=== PATIENT | male | born 1930 | race African-American/Black ===

== ENCOUNTER 2020-04-25 18:17 | Inpatient (IN) | payer OTHER ==
[~2020-04-25] VITALS: Ht 172.7 cm; Wt 66.4 kg
[2020-04-25] MEDS ORDERED: GENTAMICIN 60MG PREMIX 50 ML IV STA (18:36)
[2020-04-25] MEDS ORDERED: DEXTROSE 50% WATER 50ML SYRINGE IV ONE (18:45)
[2020-04-25] MEDS ORDERED: VANCOMYCIN 1 G PREMIX 200 ML IV SCH (18:45)
[2020-04-25] MEDS ORDERED: MORPHINE SULFATE 2 MG/ML CPJ (NOT FOR IM USE) IV ONE (19:00)
[2020-04-25 19:19] LABS: HEMATOCRIT. 35.9 % (42.0-52.0); HEMOGLOBIN. 11.4 g/dL (14.0-18.0); MEAN CORPUSCULAR HEMOGLOBIN 28.8 pg (28.0-32.0); MEAN CORPUSCULAR VOLUME 90.4 fL (80.0-94.0); MEAN PLATELET VOLUME 7.7 fl (7.4-10.4); PLATELET 200 x1000/uL (130-400); RED BLOOD CELL COUNT 3.96 mill/uL (4.7-6.1); RED CELL DISTRIBUTION WIDTH 16.9 % (11.6-14.6)
[2020-04-25 19:26] LABS: PROTHROMBIN TIME 11.1 sec (9.6-11.0)
[2020-04-25 19:27] LABS: CHLORIDE 104 mEq/L (98-107)
[2020-04-25] MEDS ORDERED: GENTAMICIN SULFATE 60 MG in SODIUM CHLORIDE 0.9% 50 ML IV NR (19:30)
[2020-04-25] MEDS ORDERED: SODIUM CHLORIDE 0.9% 1000ML BAG (SEPSIS BOLUS) IV ONE (20:00)
[2020-04-25 20:03] LABS: PLATELET ESTIMATE NORMAL
[2020-04-25] MEDS ORDERED: ACETAMINOPHEN 325MG TABLET PO PRN (21:45)
[2020-04-25] MEDS ORDERED: IPRATROPIUM/ALBUTEROL 0.5-3(2.5)MG/3ML NEB HHN PRN (21:45)
[2020-04-25] MEDS ORDERED: HYDROCODONE/ACETAMINOPHEN 5/325MG TABLET PO PRN (21:45)
[2020-04-25] MEDS ORDERED: CLONIDINE 0.1MG TABLET PO PRN (21:45)
[2020-04-25] MEDS ORDERED: HYDRALAZINE 20MG/ML VIAL IV PRN (21:45)
[2020-04-25] MEDS ORDERED: MAGNESIUM/ALUMINUM HYDROXIDE/SIMETHICONE 30ML UDC PO PRN (21:45)
[2020-04-25] MEDS ORDERED: GUAIFENESIN 200MG/10ML SUGAR FREE UDC PO PRN (21:45)
[2020-04-25] MEDS ORDERED: DOCUSATE SODIUM 100MG CAPSULE PO PRN (21:45)
[2020-04-25] MEDS ORDERED: ONDANSETRON HCL 4MG/2ML INJ IV PRN (21:45)
[2020-04-25] MEDS ORDERED: LORAZEPAM 2MG/ML CPJ IV PRN (21:45)
[2020-04-25] MEDS ORDERED: DIPHENHYDRAMINE 50MG/ML VIAL IV PRN (21:45)
[2020-04-25] MEDS ORDERED: MORPHINE SULFATE 2 MG/ML CPJ (NOT FOR IM USE) IV PRN (21:45)
[2020-04-25] MEDS ORDERED: HEPARIN 25,000 UNITS PREMIX 250 ML IV STA (21:56)
[2020-04-25] MEDS: SODIUM CHLORIDE 0.9% INJ 3ML FLUSH IVF SCH (22:00)
[2020-04-25] MEDS ORDERED: HEPARIN 5000 UNITS/ML VIAL IV ONE (22:00)
[2020-04-25] MEDS: DEXTROSE 5% WATER 1,000 ML IV SCH (22:52)
[2020-04-25] MEDS ORDERED: HEPARIN 25,000 UNITS PREMIX 250 ML IV SCH (23:00)
[2020-04-25] MEDS ORDERED: ENOXAPARIN 60MG/0.6ML SYR SUBCUT SCH (23:30)
[2020-04-25 23:41] LABS: CREATINE KINASE MB FRACTION 3.9 ng/mL (0.5-3.6)
[2020-04-26] VITALS (7 sets, daily range): BP systolic 107–140; BP diastolic 58–77
[2020-04-26] MEDS: SODIUM CHLORIDE 0.9% INJ 3ML FLUSH IVF SCH ×3 (05:03→22:02)
[2020-04-26] MEDS ORDERED: HEPARIN BOLUS PRN aPTT <36 IV (06:00)
[2020-04-26 07:05] LABS: HEMATOCRIT. 32.6 % (42.0-52.0); HEMOGLOBIN. 10.3 g/dL (14.0-18.0); MEAN CORPUSCULAR HEMOGLOBIN 28.8 pg (28.0-32.0); MEAN CORPUSCULAR VOLUME 90.7 fL (80.0-94.0); MEAN PLATELET VOLUME 7.8 fl (7.4-10.4); PLATELET 209 x1000/uL (130-400); RED CELL DISTRIBUTION WIDTH 17.4 % (11.6-14.6)
[2020-04-26 07:07] LABS: CHLORIDE 105 mEq/L (98-107)
[2020-04-26 07:15] LABS: CREATINE KINASE 43 IU/L (39-308)
[2020-04-26 07:17] LABS: CREATINE KINASE MB FRACTION 3.2 ng/mL (0.5-3.6)
[2020-04-26] MEDS ORDERED: POTASSIUM CHLORIDE 20MEQ TABLET SR PO NR (09:00)
[2020-04-26] MEDS ORDERED: HEPARIN BOLUS PRN aPTT 37-44 IV (09:00)
[2020-04-26] MEDS: ENOXAPARIN 60MG/0.6ML SYR SUBCUT SCH (09:39)
[2020-04-26] MEDS: ASPIRIN 81MG TABLET PO SCH (11:14)
[2020-04-26] MEDS ORDERED: VANCOMYCIN 1 G PREMIX 200 ML IV SCH (13:00)
[2020-04-26 14:34] LABS: PLATELET ESTIMATE NORMAL
[2020-04-26] MEDS: DEXTROSE 5% WATER 1,000 ML IV SCH (22:02)
[2020-04-27] VITALS: BP 127/66
[2020-04-27 04:00] VITALS: BP 137/68
[2020-04-27] MEDS: SODIUM CHLORIDE 0.9% INJ 3ML FLUSH IVF SCH ×3 (05:14→21:26)
[2020-04-27 08:00] VITALS: BP 102/63
[2020-04-27 08:01] LABS: BASOPHILS % 0.7 % (0.0-2.0); HEMATOCRIT. 33.5 % (42.0-52.0); HEMOGLOBIN. 10.5 g/dL (14.0-18.0); LYMPHOCYTES % 7.5 % (20.0-50.0); MEAN CORPUSCULAR VOLUME 92.3 fL (80.0-94.0); MEAN PLATELET VOLUME 8.3 fl (7.4-10.4); MONOCYTES % 9.3 % (2.0-8.0); NEUTROPHILS % 81.5 % (40.0-76.0); PLATELET 228 x1000/uL (130-400); RED BLOOD CELL COUNT 3.63 mill/uL (4.7-6.1); RED CELL DISTRIBUTION WIDTH 17.6 % (11.6-14.6)
[2020-04-27] MEDS: ASPIRIN 81MG TABLET PO SCH (08:39)
[2020-04-27] MEDS: ENOXAPARIN 60MG/0.6ML SYR SUBCUT SCH (09:14)
[2020-04-27 12:00] VITALS: BP 120/61
[2020-04-27 16:00] VITALS: BP 139/60
[2020-04-27 20:00] VITALS: BP 137/67
[2020-04-27] MEDS: DEXTROSE 5% WATER 1,000 ML IV SCH (21:00)
[2020-04-28] VITALS: BP 128/69
[2020-04-28 04:00] VITALS: BP 140/62
[2020-04-28] MEDS: SODIUM CHLORIDE 0.9% INJ 3ML FLUSH IVF SCH ×2 (05:12→13:36)
[2020-04-28 06:38] LABS: HEMATOCRIT. 32.6 % (42.0-52.0); HEMOGLOBIN. 10.4 g/dL (14.0-18.0); MEAN CORPUSCULAR VOLUME 90.8 fL (80.0-94.0); PLATELET 237 x1000/uL (130-400); RED BLOOD CELL COUNT 3.58 mill/uL (4.7-6.1); RED CELL DISTRIBUTION WIDTH 17.2 % (11.6-14.6)
[2020-04-28] MEDS: ASPIRIN 81MG TABLET PO SCH (08:19)
[2020-04-28 09:00] VITALS: BP 114/60
[2020-04-28] MEDS: ENOXAPARIN 60MG/0.6ML SYR SUBCUT SCH (09:27)
[2020-04-28 12:00] VITALS: BP 124/73
[2020-04-28 14:33] LABS: PLATELET ESTIMATE NORMAL
[2020-04-28 14:36] VITALS: BP 124/73
[2020-04-28 16:00] VITALS: BP 135/53
[2020-04-28] MEDS ORDERED: VANCOMYCIN 500 MG PREMIX 100 ML IV SCH (21:00)
[2020-04-29] MEDS ORDERED: ENOXAPARIN 80MG/0.8ML SYR SUBCUT SCH (09:00)
== END 2020-04-28 17:10 | disposition short-term general hospital (02) | DRG 299 ==
LOC: ER 18:25 → 5WST 20:33 → ENRESERV 23:48
PROVIDERS: ADMIT Internal Medicine; ATTEND Internal Medicine
PROC: 5A1D70Z Performance of Urinary Filtration, Intermittent, Less than 6 Hours Per Day (ICD-10-PCS; principal; 2020-04-26)
DX: I82.411 Acute embolism and thrombosis of right femoral vein (principal); N18.6 End stage renal disease; G93.40 Encephalopathy, unspecified; E46 Unspecified protein-calorie malnutrition; I12.0 Hypertensive chronic kidney disease with stage 5 chronic kidney disease or end stage renal disease; L97.819 Non-pressure chronic ulcer of other part of right lower leg with unspecified severity; I82.431 Acute embolism and thrombosis of right popliteal vein; D64.9 Anemia, unspecified; E16.2 Hypoglycemia, unspecified; Z96.641 Presence of right artificial hip joint; R62.7 Adult failure to thrive; E87.6 Hypokalemia; F03.90 Unspecified dementia, unspecified severity, without behavioral disturbance, psychotic disturbance, mood disturbance, and anxiety; Z88.0 Allergy status to penicillin; Z99.2 Dependence on renal dialysis; Z88.8 Allergy status to other drugs, medicaments and biological substances; Z86.73 Personal history of transient ischemic attack (TIA), and cerebral infarction without residual deficits; Z68.22 Body mass index [BMI] 22.0-22.9, adult; L89.229 Pressure ulcer of left hip, unspecified stage; L89.219 Pressure ulcer of right hip, unspecified stage; R77.8 Other specified abnormalities of plasma proteins
CPT/HCPCS: 36415; 71045; 73502; 80048; 80053; 80061; 80202; 82550; 82553; 82962; 83605; 83735; 83880; 84145; 84484; 85025; 93005; 93306; 93970; 99291; C1893; J1580; J1644; J1650; J2270; J3370; J7030; J7040; J7070

== ENCOUNTER 2020-05-14 17:07 | Inpatient (IN) | payer OTHER ==
[~2020-05-14] VITALS: Ht 175.3 cm; Wt 52.2 kg
[2020-05-14 18:54] LABS: CLARITY URINE TURBID (CLEAR); COLOR URINE ORANGE (YELLOW); KETONES URINE NEGATIVE (NEGATIVE); LEUKOCYTE ESTERASE URINE 3+ (NEGATIVE); NITRITE URINE POSITIVE (NEGATIVE); OCCULT BLOOD URINE 3+ (NEGATIVE); PH URINE 7.5 (4.5-8.0); PROTEIN URINE 3+ (NEGATIVE); SPECIFIC GRAVITY URINE 1.019 (1.005-1.030); UROBILINOGEN URINE 0.2 E.U./dL (0.2-1.0)
[2020-05-14 19:28] LABS: CANNABINOID URINE SCREEN NEGATIVE (NEGATIVE); OPIATES URINE SCREEN NEGATIVE (NEGATIVE); PHENCYCLIDINE URINE SCREEN NEGATIVE (NEGATIVE)
[2020-05-14 19:29] LABS: *AMPHETAMINES SCREEN URINE NEGATIVE (NEGATIVE); *BARBITURATES SCREEN URINE NEGATIVE (NEGATIVE); *BENZODIAZEPINES SCREEN URINE NEGATIVE (NEGATIVE); *COCAINE SCREEN URINE NEGATIVE (NEGATIVE); METHADONE URINE SCREEN NEGATIVE (NEGATIVE)
[2020-05-14 19:29] LABS: HEMATOCRIT. 44.3 % (42.0-52.0); HEMOGLOBIN. 14.2 g/dL (14.0-18.0); MEAN CORPUSCULAR HEMOGLOBIN 28.1 pg (28.0-32.0); MEAN CORPUSCULAR VOLUME 87.6 fL (80.0-94.0); PLATELET 147 x1000/uL (130-400); RED BLOOD CELL COUNT 5.06 mill/uL (4.7-6.1); RED CELL DISTRIBUTION WIDTH 19.4 % (11.6-14.6)
[2020-05-14] MEDS ORDERED: CEFEPIME 2,000 MG in DEXT 5% WATER 100 ML IV SCH (19:30)
[2020-05-14] MEDS ORDERED: VANCOMYCIN 1 G PREMIX 200 ML IV ONE (19:30)
[2020-05-14 19:37] LABS: CHLORIDE 106 mEq/L (98-107)
[2020-05-14 19:38] LABS: INR 1.2; PROTHROMBIN TIME 12.5 sec (9.6-11.0)
[2020-05-14 19:41] LABS: ETHANOL BLOOD < 10 mg/dL
[2020-05-14] MEDS ORDERED: DIPHENHYDRAMINE 50MG/ML VIAL IV PRN (19:45)
[2020-05-14] MEDS ORDERED: CLONIDINE 0.1MG TABLET PO PRN (19:45)
[2020-05-14] MEDS ORDERED: IPRATROPIUM/ALBUTEROL 0.5-3(2.5)MG/3ML NEB HHN PRN (19:45)
[2020-05-14] MEDS ORDERED: ONDANSETRON HCL 4MG/2ML INJ IV PRN (19:45)
[2020-05-14] MEDS ORDERED: ACETAMINOPHEN 325MG TABLET PO PRN (19:45)
[2020-05-14 19:52] LABS: PLATELET ESTIMATE NORMAL
[2020-05-15 05:16] LABS: BASOPHILS % 1.4 % (0.0-2.0); EOSINOPHILS % 0.1 % (0.0-5.0); HEMATOCRIT. 39.7 % (42.0-52.0); HEMOGLOBIN. 12.4 g/dL (14.0-18.0); LYMPHOCYTES % 9.9 % (20.0-50.0); MEAN CORPUSCULAR HEMOGLOBIN 27.4 pg (28.0-32.0); MEAN CORPUSCULAR VOLUME 87.6 fL (80.0-94.0); MEAN PLATELET VOLUME 7.6 fl (7.4-10.4); MONOCYTES % 13.4 % (2.0-8.0); NEUTROPHILS % 75.2 % (40.0-76.0); PLATELET 149 x1000/uL (130-400); RED BLOOD CELL COUNT 4.53 mill/uL (4.7-6.1); RED CELL DISTRIBUTION WIDTH 18.9 % (11.6-14.6)
[2020-05-15 05:20] LABS: CHLORIDE 106 mEq/L (98-107)
[2020-05-15 05:27] LABS: LDL CHOLESTEROL 32 mg/dL (5-100)
[2020-05-15 05:29] LABS: HDL CHOLESTEROL 70 mg/dL (40-59)
[2020-05-15 08:25] VITALS: BP 254/54
[2020-05-15 08:30] VITALS: BP 254/54
[2020-05-15] MEDS: AMLODIPINE 5MG TABLET PO SCH (09:49)
[2020-05-15 12:10] VITALS: BP 166/60
[2020-05-15] MEDS ORDERED: CIPR-263 PO (15:45)
[2020-05-15] MEDS ORDERED: CEFE1PIG3 IV (15:45)
[2020-05-15] MEDS ORDERED: LOVA40TA73 PO (16:07)
[2020-05-15] MEDS ORDERED: SENN-257 PO (16:07)
[2020-05-15] MEDS ORDERED: DOCU50LI25 PO (16:07)
[2020-05-15] MEDS ORDERED: DOCO2CRE5 TP (16:07)
[2020-05-15] MEDS ORDERED: APIX2.5T MT (16:07)
[2020-05-15] MEDS ORDERED: FOLI1TAB84 PO (16:07)
[2020-05-15] MEDS ORDERED: SEVE800T8 PO (16:07)
[2020-05-15] MEDS ORDERED: METR-167 PO (16:07)
[2020-05-15] MEDS ORDERED: MEMA5TAB42 PO (16:07)
[2020-05-15] MEDS ORDERED: CINA30 PO (16:07)
[2020-05-15] MEDS ORDERED: PIPE3.3736 IV (16:07)
[2020-05-15 16:16] VITALS: BP 124/56
[2020-05-15] MEDS: ENOXAPARIN 60MG/0.6ML SYR SUBCUT SCH (16:51)
[2020-05-15 16:54] LABS: FOLIC ACID (FOLATE) SERUM 11.2 ng/mL (>5.38)
[2020-05-15 20:00] VITALS: BP 149/79
[2020-05-16] VITALS: BP 136/74
[2020-05-16 04:00] VITALS: BP 125/67
[2020-05-16 06:39] LABS: T4 FREE 1.25 ng/dL (0.76-1.46)
[2020-05-16 07:25] LABS: BASOPHILS % 1.5 % (0.0-2.0); HEMATOCRIT. 37.1 % (42.0-52.0); HEMOGLOBIN. 11.5 g/dL (14.0-18.0); LYMPHOCYTES % 8.3 % (20.0-50.0); MEAN CORPUSCULAR HEMOGLOBIN 27.4 pg (28.0-32.0); MEAN PLATELET VOLUME 8.3 fl (7.4-10.4); MONOCYTES % 9.7 % (2.0-8.0); NEUTROPHILS % 80.5 % (40.0-76.0); PLATELET 155 x1000/uL (130-400); RED BLOOD CELL COUNT 4.21 mill/uL (4.7-6.1); RED CELL DISTRIBUTION WIDTH 19.3 % (11.6-14.6)
[2020-05-16 08:10] VITALS: BP 130/66
[2020-05-16] MEDS: AMLODIPINE 5MG TABLET PO SCH (09:14)
[2020-05-16 12:00] VITALS: BP 129/67
[2020-05-16 16:00] VITALS: BP 156/74
[2020-05-16] MEDS: ENOXAPARIN 60MG/0.6ML SYR SUBCUT SCH (16:43)
[2020-05-16 20:00] VITALS: BP 159/65
[2020-05-16] MEDS ORDERED: DEXTROSE 50% WATER 50ML SYRINGE IV NR (22:45)
[2020-05-17] VITALS: BP 142/72
== END 2020-05-17 01:25 | disposition short-term general hospital (02) | DRG 91 ==
LOC: ER 17:07 → 6WST 19:25 → EDBEDREQSVC 05-15 05:05 → ENRESERV 05-15 07:05
PROVIDERS: ADMIT Internal Medicine; ATTEND Internal Medicine
PROC: 5A1D70Z Performance of Urinary Filtration, Intermittent, Less than 6 Hours Per Day (ICD-10-PCS; 2020-05-15)
PROC: 4A10X4Z Monitoring of Central Nervous Electrical Activity, External Approach (ICD-10-PCS; principal; 2020-05-16)
PROC: 5A1D70Z Performance of Urinary Filtration, Intermittent, Less than 6 Hours Per Day (ICD-10-PCS; 2020-05-17)
DX: G92 Toxic encephalopathy (principal); N18.6 End stage renal disease; N39.0 Urinary tract infection, site not specified; I12.0 Hypertensive chronic kidney disease with stage 5 chronic kidney disease or end stage renal disease; E87.2 Acidosis; E46 Unspecified protein-calorie malnutrition; Z68.1 Body mass index [BMI] 19.9 or less, adult; I82.531 Chronic embolism and thrombosis of right popliteal vein; I82.511 Chronic embolism and thrombosis of right femoral vein; D64.9 Anemia, unspecified; D72.821 Monocytosis (symptomatic); R80.9 Proteinuria, unspecified; R31.9 Hematuria, unspecified; R74.01 Elevation of levels of liver transaminase levels; F03.90 Unspecified dementia, unspecified severity, without behavioral disturbance, psychotic disturbance, mood disturbance, and anxiety; L89.216 Pressure-induced deep tissue damage of right hip; L89.116 Pressure-induced deep tissue damage of right upper back; Z99.2 Dependence on renal dialysis; Z86.73 Personal history of transient ischemic attack (TIA), and cerebral infarction without residual deficits; Z88.0 Allergy status to penicillin; Z88.8 Allergy status to other drugs, medicaments and biological substances; I25.2 Old myocardial infarction; Z79.01 Long term (current) use of anticoagulants
CPT/HCPCS: 36415; 71045; 80048; 80053; 80061; 80305; 80320; 81003; 82140; 82607; 82746; 82962; 83036; 83605; 84145; 84439; 84443; 84481; 84484; 85025; 86850; 86900; 87426; 92610; 93005; 93970; 99291; J0692; J1650; J3370; J7060; G0480